=== PATIENT | male | born 1985 | race Caucasian/White ===

== ENCOUNTER 2017-08-20 20:17 | Emergency (ER) | payer OTHER ==
[2017-08-20 20:33] VITALS: TEMP 98.4
[2017-08-20] MEDS ORDERED: NS 1,000 ML IV ONE ×2 (20:40→21:50)
[2017-08-20] MEDS ORDERED: LORazepam 2 MG/ML INJ IVP ONE (20:41)
--- NOTE | 2017-08-20 20:43 | EDPHY ---
HPI/HX/ROS/PE/MDM Narrative: CHIEF COMPLAINT: "I am having anxiety attack." HPI: The patient is a 32-year-old male who states he has a history of panic attacks. Last night he said he drank quite a bit of alcohol. He woke up this morning feeling okay. Approximately 6 hr ago, he developed rapid heart rate, palpitations and feeling of anxiety. He states that he took his pulse at what point and it was approximately 160 beats per minute. He denies loss of consciousness. He denies chest pain, back pain, or shortness of breath. He has no known cardiac disease nor any family history of cardiac disease. He denies any stimulant or cocaine use. REVIEW OF SYSTEMS: Aside from elements discussed in the HPI, a comprehensive 10-point review of systems was reviewed and is negative. PMH: Includes anxiety. SOCIAL HISTORY: Occasional alcohol use. Occasional marijuana. Denies cocaine or stimulant use. PHYSICAL EXAM: General:Patient is alert, in no acute distress. He appears healthy. ENT:Eyes are normal to inspection. ENT inspection normal. Neck: Normal inspection. Full range of motion. Respiratory:No respiratory distress. Breath sounds normal bilaterally. Cardiovascular: Tachycardic rate, regular rhythm. Strong peripheral pulses. Normal cap refill. Abdomen:The abdomen is nontender to palpation. There are no peritoneal signs. There are normal bowel sounds. Back: Normal to inspection. No tenderness to palpation. Skin: Normal color. No rash. Warm and dry. Extremities: Normal appearance. Full range of motion. Neuro: Oriented x3. Normal motor function. Normal sensory function. ED Course: EKG: Sinus tach with no ST changes. MDM: This is a young healthy male who presents with tachycardia in the setting of history of panic attacks and alcohol abuse last night. His workup in the ED is negative and vital signs have normalized with IVNS and IV ativan, making panic attack likely etiology. I doubt PE, ACS, sepsis. It is possible that he had an episode of SVT prior to arrival but his ECG shows no sign of abnormality. He is comfortable with plan for discharge home and cardiology follow-up. We discussed strict return precautions. - Data Points Laboratory Results: 08/20/17 08/20/17 20:45 20:45 WBC Pending RBC Pending Hgb Pending Hct Pending MCV Pending MCH Pending MCHC Pending RDW Pending Plt Count Pending MPV Pending Neut % (Auto) Pending Lymph % (Auto) Pending [place] % (Auto) Pending Eos % (Auto) Pending Baso % (Auto) Pending Nucleat RBC Rel Count Pending Absolute Neuts (auto) Pending Absolute Lymphs (auto) Pending Absolute Monos (auto) Pending Absolute Eos (auto) Pending Absolute Basos (auto) Pending Absolute Nucleated RBC Pending Immature Gran % Pending Immature Gran # Pending Sodium Pending Potassium Pending Chloride Pending Carbon Dioxide Pending Anion Gap Pending BUN Pending Creatinine Pending Estimated GFR Pending Glucose Pending Calcium Pending Troponin I Pending Medications Given: Discontinued Medications Sodium Chloride (Ns) 1,000 mls @ 0 mls/hr IV EDNOW ONE; Wide Open PRN Reason: Protocol Stop: 08/20/17 20:41 Last Admin: 08/20/17 20:53 Dose: 1,000 mls Lorazepam (Ativan Injection) 1 mg IVP EDNOW ONE Stop: 08/20/17 20:42 Last Admin: 08/20/17 20:53 Dose: 0.5 mg General Time Seen by Provider: 08/20/17 20:35 Initial Vital Signs: Initial Vital Signs Temperature (C) 36.9 C 08/20/17 20:29 Heart Rate 142 H 08/20/17 20:29 Respiratory Rate 18 08/20/17 20:29 Blood Pressure 153/82 H 08/20/17 20:29 O2 Sat (%) 100 08/20/17 20:29 O2 Delivery Mode Room Air Allergies/Adverse Reactions: No Known Allergies Allergy (Unverified 08/20/17 20:33) Home Medications: Medication Instructions Recorded NK [No Known Home Meds] 08/20/17 Departure - Departure Disposition: Home, Routine, Self-Care Clinical Impression: Tachycardia, Anxiety Condition: Good Instructions: Heart Palpitations (ED) Additional Instructions: Follow-up with a environmental services director within one week. Return to the ED for chest pain , fast heart rate, passing out or other concerns. Referrals: NONE *PRIMARY CARE P,. [Primary Care Provider] - As per Instructions Stand Alone Forms: Work Excuse
[2017-08-20 20:56] LABS: PLATELET COUNT 233 10^3/uL (150-400)
[2017-08-20 21:52] VITALS: RESP 18
[2017-08-20 22:28] VITALS: BP 128/75; PULSE 96; O2SAT 99
--- NOTE | 2017-08-21 14:26 | CPEKG ---
Heart Rate: 112 RR Interval: 536 P-R Interval: 136 QRSD Interval: 106 QT Interval: 340 QTC Interval: 464 P [place]: 77 QRS [place]: 63 T Wave [place]: 30 EKG Severity - ABNORMAL ECG - EKG Impression: SINUS TACHYCARDIA EKG Impression: PROBABLE LEFT ATRIAL ABNORMALITY EKG Impression: INCOMPLETE RIGHT BUNDLE BRANCH BLOCK Electronically Signed By: Phillip Mcgrath 22-Aug-2017 07:16:06
== END 2017-08-20 22:37 | disposition home or self-care (01) ==
DX: F41.9 Anxiety disorder, unspecified (principal); R00.0 Tachycardia, unspecified; E86.9 Volume depletion, unspecified
CPT/HCPCS: 96374; J2060

== ENCOUNTER 2018-01-02 19:06 | Emergency (ER) | payer OTHER ==
[2018-01-02] MEDS ORDERED: DIAZEPAM 5 MG TAB ONE (19:23)
[2018-01-02] MEDS ORDERED: DIAZEPAM 5 MG TAB PO ONE (19:24)
--- NOTE | 2018-01-02 19:29 | EDPHY ---
H & P Time Seen by Provider: 01/02/18 19:11 HPI/ROS: HPI Panic attack. 32-year-old male on foot. This patient reports that he has a history of panic attacks. He reports he was drinking alcohol last night. He reports that several hours prior to arrival he developed palpitations described as a racing heart, anxiety and shortness of breath. He last had a similar episode to this following a night of drinking alcohol in late July over the . Denies any IV drugs or street drugs. No alcohol today. ROS: Constitutional: No fever, no chills. As above. Eyes: No discharge. No changes in vision. ENT: No sore throat. No nasal congestion or rhinorrhea. Respiratory: No cough. As above. Cardiac: No chest pain, as above. Gastrointestinal: No abdominal pain, no vomiting, no diarrhea. Genitourinary: No hematuria. No dysuria or increased frequency with urination. Musculoskeletal: No back pain. No neck pain. No myalgias or arthralgias. Skin: No rashes. Neurological: No headache. No focal weakness or altered sensation. Past medical history: Anxiety. Panic attacks. Social history: Drinks alcohol occasionally. Nonsmoker. As above. Physical Exam: General Appearance: Alert, anxious but not in distress. This patient is responding to questions appropriately and in full sentences. This patient appears well-hydrated and well-nourished. Eyes: Pupils equal and round no pallor or injection. No lid edema, erythema or injection. Respiratory: There are no retractions, lungs are clear to auscultation with good air movement bilaterally. Cardiovascular: Regular rate and rhythm. No murmur. Gastrointestinal: Abdomen is soft and nontender, no masses, bowel sounds normal. No focal tenderness at McBurney's point. No Schmidt sign. Neurological: Motor sensory function is grossly intact. Cranial nerves are normal. Gait is normal. Skin: Warm and dry, no rashes. Musculoskeletal: Neck is supple and nontender. Extremities are symmetrical. All joints range without pain or impingement. Psychiatric: No agitation. No depression. Database: EKG: EKG time is 8:04 p.m.; EKG shows a narrow complex sinus tachycardia with a ventricular rate of 118. The MO, QRS, QT intervals are within normal limits. There are no ST-T wave changes indicative of ischemic or injury pattern. No evidence of right heart strain. Interpreted by me. Imaging: Procedures: Emergency department course: Vital signs reviewed. This patient's presentation is consistent with a panic attack which she has had in the past. He was given 10 mg of oral Valium after my evaluation. 7:50 p.m., patient re-evaluated. He is still agitated. school lunch monitor shows a narrow complex sinus tachycardia with ventricular rate of 130. He opened up to me and told me that he thinks he may have an alcohol problem and is withdrawing from alcohol. He reports that he does drink on a regular basis. IV will be established. He will be started on IV normal saline with 1 L to be given over the next hour. He will be given 10 mg of IV Valium. 9:30 p.m., patient re-evaluated. He was sleeping but easily arousable. Heart rate at rest came down to 108. He is still jittery on arousal and his heart rate comes up to the low 120s. school lunch monitor shows a narrow complex sinus rhythm. Blood pressure is normal. He states that he does use cocaine but has not used cocaine in the last 2 days. He was given another 5 mg of IV Valium. 10:15 p.m., patient re-evaluated. Resting comfortably at this time. school lunch monitor shows a narrow complex normal sinus rhythm with ventricular rate of 98. Blood pressure 145/72. He was sleeping but easily arousable. He states that he feels much more relaxed at this time. He does feel comfortable going home and is requesting discharge. He is not tremulous. I discussed the liabilities of cocaine abuse as well as alcohol. Follow-up was reviewed with him. Return to emergency department precautions discussed. All of his questions were answered. He was discharged from the emergency department in good condition with a sober ride. Differential Diagnosis: The differential diagnosis on this patient includes but is not limited to panic attack, anxiety reaction, alcohol withdrawal, polysubstance abuse. Pulmonary embolism, asthma exacerbation, acute coronary syndrome unlikely. This represents a partial list of diagnoses considered. These considerations are based on history, physical exam, past history, reassessment and diagnostic testing. Smoking Status: Light smoker Constitutional: Initial Vital Signs Temperature (C) 36.8 C 01/02/18 19:08 Heart Rate 160 H 01/02/18 19:08 Respiratory Rate 30 H 01/02/18 19:08 Blood Pressure 157/104 H 01/02/18 19:08 O2 Sat (%) 100 01/02/18 19:08 O2 Delivery Mode Room Air Allergies/Adverse Reactions: No Known Allergies Allergy (Verified 01/02/18 19:08) Home Medications: Medication Instructions Recorded NK [No Known Home Meds] 08/20/17 Medical Decision Making - Data Points Laboratory Results: Laboratory Results 01/02/18 20:00 01/02/18 20:00 01/02/18 01/02/18 20:00 20:00 WBC 5.68 10^3/uL 10^3/uL (3.80-9.50) RBC 4.90 10^6/uL 10^6/uL (4.40-6.38) Hgb 16.1 g/dL g/dL (13.7-17.5) Hct 44.4 % % (40.0-51.0) MCV 90.6 fL fL (81.5-99.8) MCH 32.9 pg pg (27.9-34.1) MCHC 36.3 g/dL g/dL (32.4-36.7) RDW 12.2 % % (11.5-15.2) Plt Count 241 10^3/uL 10^3/uL (150-400) MPV 9.3 fL fL (8.7-11.7) Neut % (Auto) 57.1 % % (39.3-74.2) Lymph % (Auto) 29.2 % % (15.0-45.0) [place] % (Auto) 13.0 % % (4.5-13.0) Eos % (Auto) 0.0 % L % (0.6-7.6) Baso % (Auto) 0.5 % % (0.3-1.7) Nucleat RBC Rel Count 0.0 % % (0.0-0.2) Absolute Neuts (auto) 3.24 10^3/uL 10^3/uL (1.70-6.50) Absolute Lymphs (auto) 1.66 10^3/uL 10^3/uL (1.00-3.00) Absolute Monos (auto) 0.74 10^3/uL 10^3/uL (0.30-0.80) Absolute Eos (auto) 0.00 10^3/uL L 10^3/uL (0.03-0.40) Absolute Basos (auto) 0.03 10^3/uL 10^3/uL (0.02-0.10) Absolute Nucleated RBC 0.00 10^3/uL 10^3/uL (0-0.01) Immature Gran % 0.2 % % (0.0-1.1) Immature Gran # 0.01 10^3/uL 10^3/uL (0.00-0.10) Sodium 145 mEq/L mEq/L (135-145) Potassium 4.5 mEq/L mEq/L (3.5-5.2) Chloride 106 mEq/L mEq/L (97-110) Carbon Dioxide 21 mEq/l L mEq/l (22-31) Anion Gap 18 mEq/L H mEq/L (8-16) BUN 9 mg/dL mg/dL (7-23) Creatinine 0.9 mg/dL mg/dL (0.7-1.3) Estimated GFR > 60 Glucose 74 mg/dL mg/dL (70-100) Calcium 9.4 mg/dL mg/dL (8.5-10.4) Ethyl Alcohol 92 mg/dL H mg/dL (0-10) Medications Given: Discontinued Medications Diazepam (Valium) 10 mg PO EDNOW ONE Stop: 01/02/18 19:25 Last Admin: 01/02/18 19:25 Dose: 10 mg Diazepam (Valium) 10 mg IVP EDNOW ONE Stop: 01/02/18 20:00 Last Admin: 01/02/18 20:38 Dose: 10 mg Diazepam (Valium) 5 mg IVP EDNOW ONE Stop: 01/02/18 20:39 Last Admin: 01/02/18 21:39 Dose: 5 mg Sodium Chloride (Ns) 1,000 mls @ 0 mls/hr IV EDNOW ONE; Wide Open PRN Reason: Protocol Stop: 01/02/18 20:32 Last Admin: 01/02/18 20:42 Dose: 1,000 mls Sodium Chloride (Ns) 1,000 mls @ 0 mls/hr IV EDNOW ONE; Wide Open PRN Reason: Protocol Stop: 01/02/18 20:39 Last Admin: 01/02/18 20:41 Dose: 1,000 mls Departure - Departure Disposition: Home, Routine, Self-Care Clinical Impression: Panic attack, Alcohol withdrawal, Polysubstance abuse Condition: Good Instructions: Alcohol Withdrawal (ED), Panic Attack (ED) Additional Instructions: Read and follow provided instructions. Follow-up with your primary care physician in 1-2 days for re-evaluation and consideration of a detox program.. Do not drink alcohol or use cocaine or other drugs. Return to the emergency department for worsening symptoms or other serious concerns. Referrals: [facility] [Outside] - As per Instructions NONE *PRIMARY CARE P,. [Primary Care Provider] - As per Instructions [facility],. [Clinic] - As per Instructions
[2018-01-02] MEDS ORDERED: DIAZEPAM 5 MG/ML 1 ML SYR IVP ONE (19:59)
--- NOTE | 2018-01-02 20:07 | CPEKG ---
Heart Rate: 118 RR Interval: 508 P-R Interval: 128 QRSD Interval: 104 QT Interval: 312 QTC Interval: 438 P [place]: 82 QRS [place]: 65 T Wave [place]: 28 EKG Severity - OTHERWISE NORMAL ECG - EKG Impression: SINUS TACHYCARDIA Electronically Signed By: Abelino Quinn 02-Jan-2018 21:42:22
[2018-01-02 20:09] LABS: PLATELET COUNT 241 10^3/uL (150-400)
[2018-01-02] MEDS ORDERED: NS 1,000 ML IV ONE ×2 (20:31→20:38)
[2018-01-02] MEDS ORDERED: DIAZEPAM 5 MG/ML 1 ML SYR ONE (20:38)
[2018-01-02] MEDS: DIAZEPAM 5 MG/ML 1 ML SYR IVP ONE ×2 (20:47→21:39)
[2018-01-02 22:23] VITALS: BP 147/75
== END 2018-01-02 22:23 | disposition home or self-care (01) ==
DX: F41.0 Panic disorder [episodic paroxysmal anxiety] (principal); F10.239 Alcohol dependence with withdrawal, unspecified; F19.10 Other psychoactive substance abuse, uncomplicated; E86.9 Volume depletion, unspecified; F17.200 Nicotine dependence, unspecified, uncomplicated
CPT/HCPCS: 96374; G0480; J3360